=== PATIENT | male | born 1980 | race Two or more races ===

== ENCOUNTER 2025-01-20 06:36 | Emergency (ER) | payer MEDICAID, SELFPAY ==
--- NOTE | 2025-01-20 06:44 | XR_ITS ---
Examination: AP chest single view TECHNIQUE: AP portable semiupright chest single view Exam date time: January 20, 2025 0658 hours INDICATIONS: Chest pain today. FINDINGS: Mild prominence left ventricle No lobar pneumonia or pulmonary edema Mild osteopenia IMPRESSION: No pneumonia or pulmonary edema
--- NOTE | 2025-01-20 06:44 | EKG_ITS ---
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
[2025-01-20 06:50] VITALS: BP 103/79; RESP 18; TEMP 36.8; O2SAT 95
[2025-01-20 06:51] VITALS: PULSE 66; RESP 18; O2SAT 98
[2025-01-20 07:09] LABS: Basophils % (Auto) 0 % (0-2.5); Eosinophils # (Auto) 0.1 Thou/mm3 (0.0-0.5); Eosinophils % (Auto) 2 % (0-10); Hemoglobin 15.1 g/dL (13.5-16.0); Immature Granulocytes % (Auto) 0 % (0-0); Immature Granulocytes Auto 0.01 Thou/mm3 (0.00-0.00); Lymphocytes # (Auto) 2.3 Thou/mm3 (1.0-4.8); Lymphocytes % (Auto) 38 % (10-50); Mean Corpuscular HGB Conc 35.1 g/dl (31.0-37.0); Mean Corpuscular Hemoglobin 30.3 pg (25.0-35.0); Mean Corpuscular Volume 86 fL (80-100); Monocytes # (Auto) 0.5 Thou/mm3 (0.0-0.8); Monocytes % (Auto) 8 % (0-12); Neutrophils # (Auto) 3.1 Thou/mm3 (1.8-7.7); Neutrophils % (Auto) 52 % (37-80); Nucleated Red Blood Cell % 0 /100 WBC (0); Platelet Count 169 Thou/mm3 (140-440); Red Blood Count 4.98 Miln/mm3 (4.50-5.90); White Blood Count 5.9 Thou/mm3 (3.8-10.6)
[2025-01-20 07:20] LABS: INR 1.1 (0.9-1.3); Prothrombin Time 11.5 Seconds (9.0-12.2)
[2025-01-20 07:41] LABS: Alanine Aminotransferase 23 U/L (10-49); Albumin/Globulin Ratio 1.4 (1.2-2.2); Alkaline Phosphatase 82 U/L (46-116); Anion Gap 7 (7-16); Aspartate Amino Transferase 16 U/L (0-34); BUN/Creatinine Ratio 13 Ratio (12-20); Bilirubin,Total 0.5 mg/dL (0.3-1.2); Blood Urea Nitrogen 10 mg/dL (9-23); Calcium 8.8 mg/dL (8.3-10.6); Calcium (Corrected) 8.8 mg/dL (8.5-10.1); Carbon Dioxide 26.3 mMol/L (20.0-31.0); Chloride 108 mMol/L (98-107); Creatinine (Component) 0.8 mg/dL (0.6-1.3); Globulin 2.9 gm/dL (2.3-3.5); Glucose 113 mg/dL (74-106); Lipase 28 U/L (12-53); Magnesium 2.2 mg/dL (1.6-2.6); Osmolality,Calculated 281 (275-295); Potassium 3.7 mMol/L (3.4-5.1); Sodium 141 mMol/L (136-145); Total Protein 6.9 gm/dL (5.7-8.2); Troponin I < 0.002 ng/mL (0.0-0.045); eGFR > 60 See Note
[2025-01-20 07:47] LABS: B-Type Natriuretic Peptide < 20 pg/mL (0-100)
[2025-01-20 07:52] LABS: Alcohol, Blood Medical < 3.0 mg/dL (0-10.0)
[2025-01-20 08:28] VITALS: PULSE 51
--- NOTE | 2025-01-20 08:55 | EDNOTE_ITS ---
ED Chest Pain RME/HPI General Chief Complaint: Chest Pain Stated Complaint: CHEST PAIN Time Seen by Provider: 01/20/25 06:44 Arrival date/time: 01/20/25 06:36 RME / HPI RME / HPI narrative: DR. EISENBERG MAIN ED EVALUATION: 44 year old male with past medical history significant for migraines, primary hypertension, and obstructive sleep apnea presents to the Emergency Department [facility] with complaint of chest pain since yesterday. Patient states that the pain started on the right side then moved to the left side. Associated symptoms include nausea and shortness of breath. Related Data Home Medications ?Medication ?Instructions ?Recorded ?Confirmed metoprolol succinate 50 mg 50 mg PO QDAY 06/14/24/11/17 tablet,extended release 24 hr Previous Rx's ?Medication ?Instructions ?Recorded levetiracetam 500 mg tablet 1,500 mg (3 x 500 mg) PO B ID #[id number] 06/16/24 tabs Allergies Allergy/AdvReac Type Severity Reaction Status Date / Time No Known Allergies Allergy Verified 07/19/20 10:45 Review of Systems Review of Systems Systems Reviewed: All systems reviewed, normal except as documented Past Medical History Past Medical History NEUROLOGIC: Positive Neurological Disorders and Migraine CARDIAC: Positive Cardiac Disorders and Hypertension; Negative Congestive Heart Failure RESPIRATORY: Positive Sleep Apnea; Negative Chronic Obstructive Pulmonary Disease (COPD) HEMATOLOGIC: Negative Blood Disorders PSYCHO/SOCIAL: Positive Anxiety OTHER HISTORY: Negative Cancer Social History SMOKING STATUS: Never smoker SUBSTANCE USE: does not use ALCOHOL: Never ED Exam Narrative Physical exam: GENERAL APPEARANCE: alert and oriented x 4, well-developed, well-nourished, no acute distress VITALS: All vitals were reviewed and the pulse ox is 95% on room air, which is normal according to my interpretation. HEENT: Normocephalic, atraumatic; pupils equal, round, reactive to light; EOMI; mucous membranes pink, moist; oropharynx clear NECK: Supple LUNGS: CTABL; no wheezes, no rales, no rhonchi HEART: Regular rate, regular rhythm; normal S1, S2; no murmurs ABDOMEN: non distended; normal BS; soft, no tenderness, no guarding, no rebound; no masses, no organomegaly, no hernia BACK: no CVA tenderness EXTREMITIES: atraumatic; no edema NEUROLOGIC: awake; alert and oriented x4; cranial nerves II-XII grossly intact; no focal sensory or motor deficits PSYCHIATRIC: appropriate mood and affect SKIN: warm, dry, normal color; no rashes Course Quality Measures none Orders Category Date Time 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 Care 01/20/25 06:44 Active EKG (ED ONLY) *Do not use* NOW Care 01/20/25 06:44 Completed IV [Insert IV] NOW Care 01/20/25 07:00 Active EKG (ED Only) Stat Exams 01/20/25 06:44 Draft XR chest 1V portable Stat Exams 01/20/25 06:44 Completed Alcohol, Blood Medical Stat Lab 01/20/25 07:00 Completed B-Type Natriuretic Peptide Stat Lab 01/20/25 07:00 Completed CBC Stat Lab 01/20/25 07:00 Completed Comprehensive Metabolic Panel Stat Lab 01/20/25 07:00 Completed D-Dimer Stat Lab 01/20/25 09:53 Completed Drug Screen,Urine Stat Lab 01/20/25 08:20 Completed Lipase Stat Lab 01/20/25 07:00 Completed Magnesium Stat Lab 01/20/25 07:00 Completed Partial Thromboplastin Time Stat Lab 01/20/25 07:00 Completed Prothrombin Time with INR Stat Lab 01/20/25 07:00 Completed Troponin I Stat Lab 01/20/25 07:00 Completed Troponin I Stat Lab 01/20/25 09:53 Completed UA, C/S IF [Urinalysis, C/S if Indicated] Stat Lab 01/20/25 08:20 Completed Vital Signs Vital signs: Vital Signs Temperature 98.2 F 01/20/25 06:50 Respiratory Rate 18 01/20/25 06:50 Blood Pressure 103/79 01/20/25 06:50 Pulse Oximetry (%) 95 01/20/25 06:50 Oxygen Delivery Method Room Air 01/20/25 06:50 Chest Pain MDM Narrative MDM Narrative:: IAna María am scribing for and in the presence of Dr. Eisenberg. Patient data External records reviewed:: EMS form Clinical information provided by:: patient and EMS Social determinants that could affect healthcare access:: none Patient has the following chronic illnesses:: migraines, primary hypertension, and obstructive sleep apnea How is presenting disease/condition affected by chronic disease/condition?: exacerbated by Evaluation data The following diagnostics were reviewed and interpreted by me:: lab results, radiology exam(s) and EKG tracing(s) (EKG#1: EKG at 0740 hours. Interpreted by me: sinus bradycardia, rate 51, QTc 435, no acute ischemic changes) Lab and/or radiology exams considered but not ordered:: none Interpretation Summary: Procedure(s): XR chest 1V portable Accession Number(s): [id number] cc: Mark Brand PA-C; Zev Lerma MD; Federica Eisenberg MD~ Examination: AP chest single view TECHNIQUE: AP portable semiupright chest single view Exam date time: January 20, 2025 0658 hours INDICATIONS: Chest pain today. FINDINGS: Mild prominence left ventricle No lobar pneumonia or pulmonary edema Mild osteopenia IMPRESSION: No pneumonia or pulmonary edema Dictated By: Zev Lerma MD Medications / Prescriptions Medications or Prescriptions considered but not ordered:: none Medication administrations:: see above if any Consultations Consultation(s) initiated? (list below): No Diagnosis Chest Pain Differential Diagnosis: atypical chest pain, costochondritis, chest pain and biliary colic Most likely diagnosis given after review of the tests above:: Atypical chest pain Admission Indicated Admission indicated?: not indicated Admission Request Was there a request for admission?: No Disposition Plan Disposition Plan: Discharge Discharge Attestation Discharge Attestation: The patient and all family members were given an opportunity to ask questions and understood the discharge instructions. Discharge instructions specifically effects, indications for sooner follow up or return to the emergency department, and the expected course of current diagnosis. Patient condition: Stable Discharge Plan Plan Patient Disposition: HOME (Self Care) Prescriptions/Referrals Prescriptions/Med Rec: No Action metoprolol succinate 50 mg Tablet Extended Release 24 Hr 50 mg PO QDAY levetiracetam 500 mg tablet 1,500 mg PO BID Qty: 180 0RF Referrals: Mark Brand PA-C [Primary Care Provider] - In 1 week Problem List Clinical Impression: Atypical chest pain Patient/Caregiver Discharge Instructions Education Materials: ED Chest Pain, Uncertain Cause Print Language: Greenlandic Stand Alone Forms: Anne Award Info., Patient Portal Info Letter
[2025-01-20 08:58] LABS: Collection Type, Urine Clean Catch
[2025-01-20 09:07] VITALS: BP 92/59; PULSE 45; RESP 16; TEMP 36.7; O2SAT 95
[2025-01-20 09:26] LABS: Bilirubin,Urine Negative (Negative); Blood,Urine Negative (Negative); Clarity,Urine Clear (Clear/Hazy); Color,Urine Yellow (Lt Yel-Yel); Culture Indicated,Urine Not Indicated; Glucose, Urine Negative (Negative); Ketones,Urine Negative (Negative); Leukocyte Esterase,Urine Negative (Negative); Nitrite,Urine Negative (Negative); Protein,Urine Negative (Neg - Trace); RBC,Urine 3 /hpf (0-3); Specific Gravity,Urine 1.027 (1.001-1.035); Squamous Epithelial Cell,Urine < 1 /hpf (0-5); Urobilinogen,Urine Negative mg/dL (0.0-1.0); WBC,Urine 1 /hpf (0-5)
[2025-01-20 09:31] LABS: Amphetamine/Methamp Scrn,U Negative (Negative); Barbiturate Screen,Urine Negative (Negative); Benzodiazepines Screen,Urine Negative (Negative); Benzoylecgonine Screen, Ur Negative (Negative); Fentanyl Screen,Urine Negative (Negative); Opiate Screen,Urine Negative (Negative); THC Screen,Urine Negative (Negative)
[2025-01-20 10:45] LABS: Troponin I < 0.002 ng/mL (0.0-0.045)
[2025-01-20 11:50] LABS: D-Dimer < 250 ng/mL (<600)
[2025-01-20 13:40] VITALS: PULSE 51; RESP 20; TEMP 36.9; O2SAT 96
== END 2025-01-20 13:40 | disposition home or self-care (01) ==
PROVIDERS: Emergency Provider Emergency Medicine; PCP Physician Assistant
DX: R07.89 Other chest pain (principal); G47.33 Obstructive sleep apnea (adult) (pediatric); I10 Essential (primary) hypertension
CPT/HCPCS: 36415; 71045; 80053; 80307; 80320; 81001; 83690; 83735; 83880; 84484; 85025; 85379; 85610; 85730; 93005; 99283; G0480

== ENCOUNTER 2025-02-24 02:02 | Emergency (ER) | payer MEDICAID, SELFPAY ==
[2025-02-24 02:03] VITALS: BMI 30.4
[2025-02-24 02:35] VITALS: BP 138/98; PULSE 78; RESP 16; TEMP 36.6; O2SAT 99
[2025-02-24] MEDS: METOCLOPRAMIDE 5 MG TABLET PO (03:17)
[2025-02-24] MEDS: MECLIZINE HCL 25 MG TABLET PO (03:17)
[2025-02-24 03:55] VITALS: BP 130/82; PULSE 68
--- NOTE | 2025-02-24 05:50 | EDNOTE_ITS ---
<Statement entered by Federica Eisenberg MD - 02/25/25 04:32> As co-signing physician, I was present and available for consult prn. I concur with the plan and care as documented by the midlevel provider. ED Dizzyness RME/HPI General Chief Complaint: Dizziness Stated Complaint: HIGH BP, DIZZINESS, NAUSEA Time Seen by Provider: 02/24/25 02:52 Arrival date/time: 02/24/25 02:02 44M with history of complex migraines and HTN presents to ED with 1 day of high BP, dizziness, and N/V. Patient denies weakness, slurred speech, fall/trauma, and vision changes. Patient has had a mild cough for 1 week. Limitations: no limitations Related Data Home Medications ?Medication ?Instructions ?Recorded ?Confirmed metoprolol succinate 50 mg 50 mg PO QDAY 06/14/2405/26 tablet,extended release 24 hr Previous Rx's ?Medication ?Instructions ?Recorded levetiracetam 500 mg tablet 1,500 mg (3 x 500 mg) PO B ID #[id number] 06/16/24 tabs Allergies Allergy/AdvReac Type Severity Reaction Status Date / Time No Known Allergies Allergy Verified 02/24/25 02:03 Review of Systems Review of Systems Systems Reviewed: All systems reviewed, normal except as documented Constitutional Constitutional: Reports system reviewed and no additional complaints, except as documented, Denies fever(s) and Denies headache(s) ENT Ears, Nose, Mouth, and Throat: Reports as per HPI, Denies disequilibrium, Denies headache(s) and Reports vertigo Cardiovascular Cardiovascular: Reports system reviewed and no additional complaints, except as documented, Denies chest pain and Denies dyspnea Respiratory Respiratory: Reports system reviewed and no additional complaints, except as documented, Denies cough and Denies dyspnea Gastrointestinal Gastrointestinal: Reports system reviewed and no additional complaints, except as documented, Reports as per HPI, Denies abdominal pain, Reports nausea and Reports vomiting Neurologic Neurologic: Reports system reviewed and no additional complaints, except as documented, Denies confusion, Denies disequilibrium, Denies headache(s) and Reports vertigo Psychiatric Psychiatric: Denies confusion Past Medical History Past Medical History NEUROLOGIC: Positive Neurological Disorders and Migraine CARDIAC: Positive Cardiac Disorders and Hypertension; Negative Congestive Heart Failure RESPIRATORY: Positive Sleep Apnea; Negative Chronic Obstructive Pulmonary Disease (COPD) GASTROINTESTINAL: Negative Gastrointestinal Disorders GENITOURINARY: Negative Genitourinary Disorders or Renal Disease MUSCULOSKELETAL: Negative Musculoskeletal Disorders ENDOCRINE: Negative Endocrine Disorders, Diabetes Mellitus Type 1 or Diabetes Mellitus Type 2 HEMATOLOGIC: Negative Blood Disorders PSYCHO/SOCIAL: Positive Anxiety OTHER HISTORY: Negative Cancer Social History SMOKING STATUS: Never smoker SUBSTANCE USE: does not use ED Exam General Limitations: Present no limitations General appearance: Present alert and in no apparent distress Head Head exam: Present atraumatic Eye Eye exam: Present normal appearance, PERRL and EOMI ENT ENT exam: Present normal exam, normal oropharynx and mucous membranes moist Neck Neck exam: Present normal inspection, full ROM and trachea midline Chest Chest inspection: Present normal inspection and symmetric chest wall rise Respiratory Respiratory exam: Present normal lung sounds bilaterally Cardiovascular Cardiovascular exam: Present regular rate, normal rhythm and normal heart sounds Abdominal Exam Abdominal exam: Present soft and normal bowel sounds Extremities Exam Extremities exam: Present normal inspection and full ROM Back Exam Back exam: Present normal inspection and full ROM Neurological Exam Neurological exam: Present alert, oriented X3 and CN II-XII intact Psychiatric Psychiatric exam: Present normal affect and normal mood Skin Skin exam: Present warm, dry, intact and normal color Course Quality Measures none Orders Category Date Time Status Bedside COVID-19 Antigen Test NOW Care 02/24/25 02:53 Completed Bedside Influenza A&B Antigen Test NOW Care 02/24/25 02:53 Completed EKG (ED ONLY) *Do not use* NOW Care 02/24/25 02:20 Completed EKG (ED Only) Stat Exams 02/24/25 02:20 Ordered Meclizine HCl [Antivert] Med 02/24/25 02:53 Discontinued 25 mg PO X1 ONE Metoclopramide [Reglan] Med 02/24/25 02:54 Discontinued 5 mg PO X1 ONE Vital Signs Vital signs: Vital Signs Temperature 98 F 02/24/25 02:35 Pulse Rate 78 02/24/25 02:35 Respiratory Rate 16 02/24/25 02:35 Blood Pressure 138/98 H 02/24/25 02:35 Pulse Oximetry (%) 99 02/24/25 02:35 O2 at 99% on RA and WNLs Dizziness MDM Narrative MDM Narrative:: 44M with history of complex migraines and HTN presents to ED with 1 day of high BP, dizziness, and N/V. Patient denies weakness, slurred speech, fall/trauma, and vision changes. Patient has had a mild cough for 1 week. Physical exam reveals normal pupil response and EOM. CN II=XII grossly intact. Gait normal. Clear lungs. No sinus tenderness. Patient is afebrile, calm, and alert Swabs neg. EKG normal. Patient declines additional diagnostics as meds improved symptoms. Patient data External records reviewed:: [facility] previous records Clinical information provided by:: patient Social determinants that could affect healthcare access:: none Patient has the following chronic illnesses:: complex migraines and HTN How is presenting disease/condition affected by chronic disease/condition?: exacerbated by Evaluation data The following diagnostics were reviewed and interpreted by me:: lab results and EKG tracing(s) Lab and/or radiology exams considered but not ordered:: ordered Interpretation Summary: above Medications / Prescriptions Medications or Prescriptions considered but not ordered:: ordered Medication administrations:: Medication Administration History Discontinued Medications Meclizine HCl (Meclizine Hcl 25 Mg Tablet) 25 mg PO X1 ONE Stop: 02/24/25 02:54 Last Admin: 02/24/25 03:17 Dose: 25 mg Documented By: ARNOLD Metoclopramide HCl (Metoclopramide 5 Mg Tablet) 5 mg PO X1 ONE Stop: 02/24/25 02:55 Last Admin: 02/24/25 03:17 Dose: 5 mg Documented By: ARNOLD above Consultations Consultation(s) initiated? (list below): No Diagnosis Dizziness Differential Diagnosis: adverse reaction to drug, benign paroxysmal positional vertigo, orthostatic hypotension, vertebral basilar insufficiency, cerebrovascular accident, acute vestibular neuronitis, transient cerebral ischemia and other (dizziness) Most likely diagnosis given after review of the tests above:: dizziness Admission Indicated Admission indicated?: not indicated Admission Request Was there a request for admission?: No Disposition Plan Disposition Plan: Discharge Discharge Attestation Discharge Attestation: The patient and all family members were given an opportunity to ask questions and understood the discharge instructions. Discharge instructions specifically effects, indications for sooner follow up or return to the emergency department, and the expected course of current diagnosis. Patient condition: Stable Discharge Plan Plan Patient Disposition: HOME (Self Care) Discharge Disposition comment: Stable Prescriptions/Referrals Prescriptions/Med Rec: No Action metoprolol succinate 50 mg Tablet Extended Release 24 Hr 50 mg PO QDAY levetiracetam 500 mg tablet 1,500 mg PO BID Qty: 180 0RF Problem List Clinical Impression: Dizziness Patient/Caregiver Discharge Instructions Education Materials: ED Dizziness, Uncertain Cause Additional Instructions: Please follow-up with PCP within 24-48 hours and return immediately if symptoms worsen. Print Language: Filipino Stand Alone Forms: Patient Portal Info Letter PA/FURNITURE MECHANIC Supervising Physician PA/FURNITURE MECHANIC Supervising Physician: Dr. Eisenberg
== END 2025-02-24 03:55 | disposition home or self-care (01) ==
LOC: SERX 03:59
PROVIDERS: Emergency Provider Emergency Medicine; PCP Physician Assistant
DX: R42 Dizziness and giddiness (principal); R94.31 Abnormal electrocardiogram [ECG] [EKG]; I10 Essential (primary) hypertension
CPT/HCPCS: 87400; 87811; 93005; 99283; A9270

== ENCOUNTER 2025-06-29 01:40 | Emergency (ER) | payer MEDICAID, SELFPAY ==
[2025-06-29 01:42] VITALS: PULSE 60; RESP 18; O2SAT 99; BMI 29.2
--- NOTE | 2025-06-29 01:47 | PD.EDSEIZ ---
ED Seizures RME/HPI General Chief Complaint: Seizure Stated Complaint: SEIZURES Time Seen by Provider: 06/29/25 01:57 Arrival date/time: 06/29/25 01:40 RME / HPI RME / HPI Narrative: See [facility] for Dr. Crum's HPI documentation. Related Data Home Medications ?Medication ?Instructions ?Recorded ?Confirmed metoprolol succinate 50 mg 50 mg PO QDAY 06/14/24 06/14/24 tablet,extended release 24 hr Previous Rx's ?Medication ?Instructions ?Recorded levetiracetam 500 mg tablet 1,500 mg (3 x 500 mg) PO BID #180 06/16/24 tabs lacosamide 50 mg tablet (Vimpat) 50 mg PO BID #60 tabs 06/29/25 Allergies Allergy/AdvReac Type Severity Reaction Status Date / Time No Known Allergies Allergy Verified 02/24/25 02:03 Review of Systems Review of Systems Systems Reviewed: All systems reviewed, normal except as documented Past Medical History Past Medical History NEUROLOGIC: Positive Neurological Disorders and Migraine CARDIAC: Positive Cardiac Disorders and Hypertension; Negative Congestive Heart Failure RESPIRATORY: Positive Sleep Apnea; Negative Chronic Obstructive Pulmonary Disease (COPD) GASTROINTESTINAL: Negative Gastrointestinal Disorders GENITOURINARY: Negative Genitourinary Disorders or Renal Disease MUSCULOSKELETAL: Negative Musculoskeletal Disorders ENDOCRINE: Negative Endocrine Disorders, Diabetes Mellitus Type 1 or Diabetes Mellitus Type 2 HEMATOLOGIC: Negative Blood Disorders PSYCHO/SOCIAL: Positive Anxiety OTHER HISTORY: Negative Cancer Social History SMOKING STATUS: Never smoker SUBSTANCE USE: does not use ED Exam Narrative Physical exam: See [facility] for Dr. Crum's physical exam documentation. Course Quality Measures none Orders Category Date Time Status Bedside COVID-19 Antigen Test NOW Care 06/29/25 02:00 Completed Bedside Influenza A&B Antigen Test NOW Care 06/29/25 02:00 Completed EKG (ED ONLY) *Do not use* NOW Care 06/29/25 01:54 Completed Saline [Insert IV] NOW Care 06/29/25 02:00 Completed EKG (ED Only) Stat Exams 06/29/25 01:54 Ordered Alcohol, Blood Medical Stat Lab 06/29/25 02:20 Completed Bilirubin,Direct Stat Lab 06/29/25 02:20 Completed CBC Stat Lab 06/29/25 02:20 Completed CMP [Comprehensive Metabolic Panel] Stat Lab 06/29/25 02:20 Completed Drug Screen,Urine Stat Lab 06/29/25 04:00 Completed Magnesium Stat Lab 06/29/25 02:20 Completed TSH [Thyroid Stimulating Hormone] Stat Lab 06/29/25 02:20 Completed Troponin I Stat Lab 06/29/25 02:20 Completed UA, C/S IF [Urinalysis, C/S if Indicated] Stat Lab 06/29/25 04:00 Completed KCL 10% Liq UDC 15 ML Med 06/29/25 04:06 Discontinued 40 meq PO X1 ONE Ketorolac Inj [Toradol Inj] Med 06/29/25 02:00 Discontinued 30 mg IVP X1 ONE Lacosamide Ivp [Vimpat IVP] Med 06/29/25 05:00 Discontinued 100 mg IVP X1 ONE Ondansetron Inj [Zofran Inj] Med 06/29/25 02:00 Discontinued 4 mg IVP X1 ONE Sodium Chloride 0.9% 1000 ml [Ns] 1,000 ml Med 06/29/25 02:00 Discontinued IV 999 mls/hr levETIRAcetam INJ [Keppra Inj] Med 06/29/25 02:00 Discontinued 1,000 mg IVP X1 ONE Vital Signs Vital signs: Vital Signs Temperature 98.9 F 06/29/25 01:52 Pulse Rate 55 L 06/29/25 01:52 Respiratory Rate 18 06/29/25 01:52 Blood Pressure 149/105 H 06/29/25 01:52 Pulse Oximetry (%) 98 06/29/25 01:52 Oxygen Delivery Method Room Air 06/29/25 01:52 Seizure MDM Narrative MDM Narrative:: This section includes all my notes and documentations, including HPI, PE, and ED course. Brayan Crum MD HPI: 45yo male with a history of seizure disorder BIBA from home with seizure just [employer]. Patient had a witnessed 30-second seizure by family. Patient is compliant with his Keppra 500mg TID. Reports headache and nausea. No other complaints reported. ROS: All negative except as documented in HPI. Physical Exam: General: Alert and oriented. No acute distress when remaining still. Eyes: Conjunctivae and lids clear. PERRL. EOMI. ENT: No nasal congestion. Neck: Supple. Heart: RRR. Lungs: No respiratory distress. Good air movement. No rhonchi, wheezing, rales. Abdomen: Soft and nontender. Normal bowel sounds. No distension. No rebound or guarding. Back: No CVA tenderness. Skin: Warm and dry. Neuro: Alert and oriented X 3. CN 2-12 grossly normal. No peripheral motor deficits. I reviewed EMS notes. I reviewed all diagnostic test results. My interpretation of the EKG is sinus rhythm with nonspecific ST-T changes. Blood tests are unremarkable except K 3.3. At this point, diagnoses include: Recurrent seizure Headache and nausea Treatment here included: Keppra Toradol Zofran IV fluid Oral KCl Lacosamide Signifiant improvement noted. Recommended outpatient management. Based on my best medical judgment, made decision no further evaluation or treatment indicated at this time. Patient understands and agrees to the discharge instructions customized and printed, see below. Discharge Instructions from Dr. Crum printed for you: 1. You were treated today for recurrent seizure. 2. Continue taking three 500 mg Keppra (levetiracetam) pills twice daily. 3. To prevent more seizures, take Vimpat 50 mg twice daily until cleared by your neurologist. 4. See your neurologist later today on 06/29/2025 for recheck and further care. At minimum, call the office and let them know what happened and ask for further instructions. 5. Seek immediate medical care with another seizure or with any concerns. Brayan Crum MD Patient data External records reviewed:: [facility] previous records (Per chart review, patient was seen here on 02/24/25 for dizziness.) and EMS form Clinical information provided by:: patient and EMS Social determinants that could affect healthcare access:: none Patient has the following chronic illnesses:: HTN How is presenting disease/condition affected by chronic disease/condition?: uneffected by Evaluation data The following diagnostics were reviewed and interpreted by me:: lab results and EKG tracing(s) (My interpretation of the EKG is: Sinus rhythm (57 bpm) with nonspecific ST-T changes. Brayan Crum MD) Lab and/or radiology exams considered but not ordered:: none Interpretation Summary: I reviewed all diagnostic test results. My interpretation of the EKG is sinus rhythm with nonspecific ST-T changes. Blood tests are unremarkable except K 3.3. Medications / Prescriptions Medications or Prescriptions considered but not ordered:: none Medication administrations:: Medication Administration History Discontinued Medications Sodium Chloride (Ns) 1,000 mls @ 999 mls/hr IV .Q1H1M ONE Stop: 06/29/25 03:00 Last Infusion: 06/29/25 03:58 Dose: Infused Documented By: Admin: 06/29/25 02:31 Dose: 999 mls/hr Documented By: DENZEL Ketorolac Tromethamine (Ketorolac Inj 30 Mg/Ml Vial) 30 mg IVP X1 ONE Stop: 06/29/25 02:01 Last Admin: 06/29/25 02:31 Dose: 30 mg Documented By: DENZEL Lacosamide (Lacosamide Inj 200 Mg/20 Ml Vial) 100 mg IVP X1 ONE Stop: 06/29/25 05:01 Last Admin: 06/29/25 05:20 Dose: 100 mg Documented By: DOUG Levetiracetam (Levetiracetam Inj 100 Mg/Ml Vial 5ml) 1,000 mg IVP X1 ONE Stop: 06/29/25 02:01 Last Admin: 06/29/25 02:30 Dose: 1,000 mg Documented By: DENZEL Ondansetron HCl (Ondansetron Inj 2 Mg/Ml Inj 2 Ml) 4 mg IVP X1 ONE; Protocol Stop: 06/29/25 02:01 Last Admin: 06/29/25 02:31 Dose: 4 mg Documented By: DENZEL Potassium Chloride (Potassium Chloride 10% 20 Meq/15 Ml Udc) 40 meq PO X1 ONE Stop: 06/29/25 04:07 Last Admin: 06/29/25 05:38 Dose: 40 meq Documented By: DOUG Keppra, Toradol, Zofran, IV fluid, Oral KCl, Lacosamide Consultations Consultation(s) initiated? (list below): No Diagnosis Seizure Differential Diagnosis: intractable seizure disorder, febrile convulsion, focal seizure, generalized seizure, new onset seizure, epileptic seizure and status epilepticus Most likely diagnosis given after review of the tests above:: Recurrent seizures Admission Indicated Admission indicated?: not indicated Explain why admission is indicated or not indicated:: With significant improvement and no condition needing emergent intervention, there was no indication for admission. Admission Request Was there a request for admission?: No Disposition Plan Disposition Plan: Discharge Discharge Attestation Discharge Attestation: The patient and all family members were given an opportunity to ask questions and understood the discharge instructions. Discharge instructions specifically effects, indications for sooner follow up or return to the emergency department, and the expected course of current diagnosis. Patient condition: Stable Discharge Plan Plan Patient Disposition: HOME (Self Care) Prescriptions/Referrals Prescriptions/Med Rec: New lacosamide [Vimpat] 50 mg tablet 50 mg PO BID Qty: 60 2RF No Action metoprolol succinate 50 mg Tablet Extended Release 24 Hr 50 mg PO QDAY levetiracetam 500 mg tablet 1,500 mg PO BID Qty: 180 0RF Referrals: Mark Brand PA-C [Primary Care Provider] - In 1 week Problem List Clinical Impression: Recurrent seizures Patient/Caregiver Discharge Instructions Discharge Activity: activity as tolerated Education Materials: ED Seizure, Recurrent (Adult) Additional Instructions: Discharge Instructions from Dr. Crum printed for you: 1. You were treated today for recurrent seizure. 2. Continue taking three 500 mg Keppra (levetiracetam) pills twice daily. 3. To prevent more seizures, take Vimpat 50 mg twice daily until cleared by your neurologist. 4. See your neurologist later today on 06/29/2025 for recheck and further care. At minimum, call the office and let them know what happened and ask for further instructions. 5. Seek immediate medical care with another seizure or with any concerns. Instrucciones de dwaine del Dr. Crum impresas para usted: 1. Hoy recibi? tratamiento por convulsiones recurrentes. 2. Contin?e tomando marycarmen comprimidos de Keppra (levetiracetam) de 500 mg dos veces al d?a. 3. Para prevenir m?s convulsiones, tome Vimpat 50 mg dos veces al d?a hasta que tadeo neur?logo lo autorice. 4. Consulte con tadeo neur?logo hoy mismo, 03/02/2025, para rachna nueva revisi?n y atenci?n adicional. [place] m?mitra, llame al consultorio e inf?rmeles lo sucedido y solicite m?s instrucciones. 5. Busque atenci?n m?dica inmediata si tiene otra convulsi?n o cualquier inquietud. Print Language: [place] Stand Alone Forms: Anne Award Info., Patient Portal Info Letter
[2025-06-29 01:50] VITALS: BMI 29.2
[2025-06-29 01:52] VITALS: BP 149/105; PULSE 55; RESP 18; TEMP 37.2; O2SAT 98
[2025-06-29] MEDS: levETIRAcetam INJ 100 MG/ML VIAL 5ML 1000 MG IVP (02:30)
[2025-06-29] MEDS: KETOROLAC INJ 30 MG/ML VIAL IVP (02:31)
[2025-06-29] MEDS: ONDANSETRON INJ 2 MG/ML INJ 2 ML 4 MG IVP (02:31)
[2025-06-29] MEDS: SODIUM CHLORIDE 0.9% 1000 ML 1,000 ML 999 ML IV (02:31)
[2025-06-29 02:45] LABS: Basophils # (Auto) 0.0 Thou/mm3 (0.0-0.2); Basophils % (Auto) 0 % (0-2.5); Eosinophils # (Auto) 0.1 Thou/mm3 (0.0-0.5); Eosinophils % (Auto) 2 % (0-10); Hematocrit 42.9 % (41.0-53.0); Hemoglobin 15.0 g/dL (13.5-16.0); Immature Granulocytes Auto 0.02 Thou/mm3 (0.00-0.00); Lymphocytes # (Auto) 2.4 Thou/mm3 (1.0-4.8); Lymphocytes % (Auto) 41 % (10-50); Mean Corpuscular HGB Conc 35.0 g/dl (31.0-37.0); Mean Corpuscular Hemoglobin 30.8 pg (25.0-35.0); Mean Corpuscular Volume 88 fL (80-100); Monocytes # (Auto) 0.5 Thou/mm3 (0.0-0.8); Monocytes % (Auto) 9 % (0-12); Neutrophils # (Auto) 2.7 Thou/mm3 (1.8-7.7); Neutrophils % (Auto) 47 % (37-80); Nucleated Red Blood Cell # 0.00 Thou/mm3 (0.00-0.00); Nucleated Red Blood Cell % 0 /100 WBC (0); Platelet Count 156 Thou/mm3 (140-440); RDW Standard Deviation 38.0 fL (35.1-43.9); Red Blood Count 4.87 Miln/mm3 (4.50-5.90); White Blood Count 5.8 Thou/mm3 (3.8-10.6)
[2025-06-29 03:18] LABS: Alanine Aminotransferase 25 U/L (10-49); Albumin, Serum 4.0 gm/dL (3.5-5.0); Albumin/Globulin Ratio 1.6 (1.2-2.2); Alcohol, Blood Medical < 3.0 mg/dL (0-10.0); Alkaline Phosphatase 82 U/L (46-116); Anion Gap 11 (7-16); Aspartate Amino Transferase 16 U/L (0-34); BUN/Creatinine Ratio 13 Ratio (12-20); Bilirubin,Direct 0.1 mg/dL (0.0-0.3); Bilirubin,Total 0.5 mg/dL (0.3-1.2); Blood Urea Nitrogen 10 mg/dL (9-23); Calcium 9.3 mg/dL (8.3-10.6); Calcium (Corrected) 9.3 mg/dL (8.5-10.1); Carbon Dioxide 25.2 mMol/L (20.0-31.0); Chloride 106 mMol/L (98-107); Creatinine (Component) 0.8 mg/dL (0.6-1.3); Estimated Creatinine Clearance 134.5 mL/min (>60); Globulin 2.5 gm/dL (2.3-3.5); Glucose 115 mg/dL (74-106); Magnesium 1.9 mg/dL (1.6-2.6); Osmolality,Calculated 283 (275-295); Potassium 3.3 mMol/L (3.4-5.1); Sodium 142 mMol/L (136-145); Thyroid Stimulating Hormone 1.23 uIU/mL (0.55-4.78); Total Protein 6.5 gm/dL (5.7-8.2); Troponin I < 0.002 ng/mL (0.0-0.045); eGFR > 60 See Note
[2025-06-29 04:14] LABS: Collection Type, Urine Clean Catch
[2025-06-29 04:23] LABS: Bilirubin,Urine Negative (Negative); Blood,Urine Negative (Negative); Clarity,Urine Clear (Clear/Hazy); Color,Urine Lt-Yellow (Lt Yel-Yel); Culture Indicated,Urine Not Indicated; Glucose, Urine Negative (Negative); Ketones,Urine Negative (Negative); Leukocyte Esterase,Urine Negative (Negative); Nitrite,Urine Negative (Negative); PH,Urine 6.0 (5.0-7.0); Protein,Urine Negative (Neg - Trace); RBC,Urine 2 /hpf (0-3); Specific Gravity,Urine 1.021 (1.001-1.035); Squamous Epithelial Cell,Urine < 1 /hpf (0-5); Urobilinogen,Urine Negative mg/dL (0.0-1.0); WBC,Urine < 1 /hpf (0-5)
[2025-06-29 04:28] LABS: Amphetamine/Methamp Scrn,U Negative (Negative); Barbiturate Screen,Urine Negative (Negative); Benzodiazepines Screen,Urine Negative (Negative); Benzoylecgonine Screen, Ur Negative (Negative); Fentanyl Screen,Urine Negative (Negative); Opiate Screen,Urine Negative (Negative); THC Screen,Urine Negative (Negative)
[2025-06-29] MEDS: LACOSAMIDE INJ 200 MG/20 ML VIAL 100 MG IVP (05:20)
[2025-06-29] MEDS: POTASSIUM CHLORIDE 10% 20 MEQ/15 ML UDC 40 MEQ PO (05:38)
[2025-06-29 05:44] VITALS: BP 128/61; PULSE 78; RESP 17; TEMP 36.6; O2SAT 55
== END 2025-06-29 05:48 | disposition home or self-care (01) ==
PROVIDERS: Emergency Provider Emergency Medicine; PCP Physician Assistant
DX: G40.909 Epilepsy, unspecified, not intractable, without status epilepticus (principal); I10 Essential (primary) hypertension; Z79.899 Other long term (current) drug therapy
CPT/HCPCS: 36415; 80053; 80307; 80320; 81001; 82248; 83735; 84443; 84484; 85025; 87400; 87811; 93005; 96361; 96374; 96375; 99284; C9254; J1885; J1953; J2405; J7030; A9270; G0480

== ENCOUNTER 2025-08-13 10:36 | Emergency (ER) | payer MEDICAID, SELFPAY ==
[2025-08-13 11:13] VITALS: BP 146/99; PULSE 74; RESP 18; TEMP 36.9; O2SAT 99; BMI 29.8
--- NOTE | 2025-08-13 11:14 | EKG_ITS ---
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
--- NOTE | 2025-08-13 11:14 | XR_ITS ---
Examination: CT brain head without contrast. 2-D sagittal coronal reconstructions Date and time of exam: August 13, 2025, 11:52 a.m. INDICATIONS: Generalized head pain today CTDI: vol (mGy): 52.4 DLP: (mGycm): 1076 Technique: Multiple CT axial sections of the brain have been obtained, 5 mm slice thickness. Contrast has not been administered. 2-D sagittal, coronal reconstructions have been obtained Low dose protocols were performed. One or more of the following dose reduction techniques were used; automated exposure control, adjustment of the mA and/or KV according to patient size, use of iterative reconstruction technique. Findings: No significant ventricular enlargement. Intra-axial or extra-axial hemorrhage density is not seen. No mass effect or midline shift Basal cisterns are not remarkable. Fourth ventricle is midline. Cranial vault intact. Impression: Negative for acute hemorrhage, mass effect or midline shift Advise clinical correlation and follow-up accordingly
--- NOTE | 2025-08-13 11:15 | PD.EDRME ---
Rapid Medical Screening Exam RME Arrival date/time: 08/13/25 10:36 45-year-old male with a history of seizures presents to the emergency room with a chief complaint of a headache, dizziness, lightheadedness x 1 week I have greeted and performed a focused initial assessment of this patient. A comprehensive ED assessment and evaluation of the patient, analysis of all test results, and completion of the medical decision making process will be conducted by additional ED providers. Chief Complaint: Headache Time Seen by Provider: 08/13/25 11:05 Vital signs: Vital Signs Temperature 98.5 F 08/13/25 11:13 Pulse Rate 74 08/13/25 11:13 Respiratory Rate 18 08/13/25 11:13 Blood Pressure 146/99 H 08/13/25 11:13 Pulse Oximetry (%) 99 08/13/25 11:13 Oxygen Delivery Method Room Air 08/13/25 11:13 Vital signs reviewed by provider: Yes
--- NOTE | 2025-08-13 11:54 | XR_ITS ---
Examination: Abdomen AP single view Technique: AP portable supine abdomen, single view Exam date and time: August 13, 2025, 1159 hours INDICATIONS: Right upper abdominal pain today. FINDINGS: Moderate stool throughout the colon No obstruction No free air The osseous structures are intact IMPRESSION: No active disease
[2025-08-13 12:06] LABS: Basophils # (Auto) 0.0 Thou/mm3 (0.0-0.2); Basophils % (Auto) 0 % (0-2.5); Eosinophils # (Auto) 0.1 Thou/mm3 (0.0-0.5); Eosinophils % (Auto) 2 % (0-10); Hematocrit 44.6 % (41.0-53.0); Hemoglobin 15.4 g/dL (13.5-16.0); Immature Granulocytes Auto 0.01 Thou/mm3 (0.00-0.00); Lymphocytes # (Auto) 1.9 Thou/mm3 (1.0-4.8); Lymphocytes % (Auto) 33 % (10-50); Mean Corpuscular HGB Conc 34.5 g/dl (31.0-37.0); Mean Corpuscular Hemoglobin 30.6 pg (25.0-35.0); Mean Corpuscular Volume 89 fL (80-100); Monocytes # (Auto) 0.5 Thou/mm3 (0.0-0.8); Monocytes % (Auto) 8 % (0-12); Neutrophils # (Auto) 3.2 Thou/mm3 (1.8-7.7); Neutrophils % (Auto) 57 % (37-80); Nucleated Red Blood Cell # 0.00 Thou/mm3 (0.00-0.00); Nucleated Red Blood Cell % 0 /100 WBC (0); Platelet Count 123 Thou/mm3 (140-440); RDW Standard Deviation 38.5 fL (35.1-43.9); Red Blood Count 5.03 Miln/mm3 (4.50-5.90); White Blood Count 5.7 Thou/mm3 (3.8-10.6)
[2025-08-13 12:29] LABS: INR 1.0 (0.9-1.3); Partial Thromboplastin Time 21.1 Seconds (22.0-36.0); Prothrombin Time 10.7 Seconds (9.0-12.2)
[2025-08-13 12:30] LABS: Ammonia 17 uMol/L (11-32)
[2025-08-13 12:32] LABS: Alanine Aminotransferase 31 U/L (10-49); Albumin, Serum 4.2 gm/dL (3.5-5.0); Albumin/Globulin Ratio 1.5 (1.2-2.2); Alkaline Phosphatase 82 U/L (46-116); Anion Gap 9 (7-16); Aspartate Amino Transferase 23 U/L (0-34); BUN/Creatinine Ratio 9 Ratio (12-20); Bilirubin,Total 0.8 mg/dL (0.3-1.2); Blood Urea Nitrogen 7 mg/dL (9-23); Calcium 8.8 mg/dL (8.3-10.6); Calcium (Corrected) 8.8 mg/dL (8.5-10.1); Carbon Dioxide 24.1 mMol/L (20.0-31.0); Chloride 108 mMol/L (98-107); Creatinine (Component) 0.8 mg/dL (0.6-1.3); Estimated Creatinine Clearance 135.6 mL/min (>60); Globulin 2.8 gm/dL (2.3-3.5); Glucose 98 mg/dL (74-106); LDH (Lactate Dehydrogenase) 225 U/L (120-246); Lipase 28 U/L (12-53); Magnesium 1.9 mg/dL (1.6-2.6); Osmolality,Calculated 279 (275-295); Potassium 4.2 mMol/L (3.4-5.1); Sodium 141 mMol/L (136-145); Total Protein 7.0 gm/dL (5.7-8.2); Troponin I 0.026 ng/mL (0.0-0.045); eGFR > 60 See Note
[2025-08-13 12:35] LABS: B-Type Natriuretic Peptide < 20 pg/mL (0-100)
[2025-08-13] MEDS: ACETAMINOPHEN 325 MG TABLET 650 MG PO (13:11)
[2025-08-13] MEDS: METOCLOPRAMIDE 5 MG TABLET PO (13:11)
[2025-08-13 13:49] LABS: Collection Type, Urine Clean Catch
--- NOTE | 2025-08-13 14:04 | EDNOTE_ITS ---
ED Headache RME/HPI General Chief Complaint: Headache Stated Complaint: HEADACHE X3 DAYS Time Seen by Provider: 08/13/25 11:05 Arrival date/time: 08/13/25 10:36 Limitations: no limitations RME / HPI RME / HPI Narrative: 08/13/25 10:36 45-year-old male with a history of seizures presents to the emergency room with a chief complaint of a headache, dizziness, lightheadedness x 1 week I have greeted and performed a focused initial assessment of this patient. A comprehensive ED assessment and evaluation of the patient, analysis of all test results, and completion of the medical decision making process will be conducted by additional ED providers. Dr. Vyas evaluation Patient is a 45-year-old male that is in the ED with concerns for breakthrough headache. Patient has a history of chronic headaches. Has an extensive history of migraines, daily headache. States that his current headache is exactly like his prior headaches however has not been improving at home with home medications. Denies fevers chills nausea vomiting cough runny nose abdominal pain dysuria hematuria melena bloody stools drugs alcohol smoking recent travel sick contacts neck rigidity photophobia phonophobia. Per the patient's patient was hospitalized here approximately ago had extensive workup because he had seizures, and temporary paralysis that has since improved. Patient denies any weakness in his extremities, numbness or tingling. Related Data Home Medications ?Medication ?Instructions ?Recorded ?Confirmed metoprolol succinate 50 mg 50 mg PO QDAY 06/14/2405/26 tablet,extended release 24 hr Previous Rx's ?Medication ?Instructions ?Recorded levetiracetam 500 mg tablet 1,500 mg (3 x 500 mg) PO B ID #[id number] 06/16/24 tabs lacosamide 50 mg tablet (Vimpat) 50 mg PO BID #60 tabs 06/29/25 metoclopramide HCl 5 mg tablet 5 mg PO QDAY PRN nausea and 08/13/25 (Reglan) vomiting 5 days #5 tabs Allergies Allergy/AdvReac Type Severity Reaction Status Date / Time No Known Allergies Allergy Verified 08/13/25 10:39 ED Exam General Limitations: Present no limitations General appearance: Present alert and in no apparent distress Head Head exam: Present atraumatic and normocephalic Eye Eye exam: Present normal appearance and PERRL ENT ENT exam: Present normal exam and normal oropharynx Neck Neck exam: Present normal inspection and full ROM; Absent meningismus Chest Chest inspection: Present normal inspection and symmetric chest wall rise Respiratory Respiratory exam: Present normal lung sounds bilaterally; Absent respiratory distress Cardiovascular Cardiovascular exam: Present regular rate and normal rhythm Abdominal Exam Abdominal exam: Present tenderness; Absent distention Extremities Exam Extremities exam: Present normal inspection Neurological Exam Neurological exam: Present alert, oriented X3, CN II-XII intact, normal gait and other (No focal neurodeficits) Psychiatric Psychiatric exam: Present normal affect and normal mood Skin Skin exam: Present warm and dry Course Quality Measures none Orders Category Date Time Status EKG (ED ONLY) *Do not use* NOW Care 08/13/25 11:[address] head/brain wo con Stat Exams 08/13/25 11:14 Completed EKG (ED Only) Stat Exams 08/13/25 11:14 Draft KUB [XR abdomen 1V] Stat Exams 08/13/25 11:54 Completed Ammonia Stat Lab 08/13/25 11:43 Completed B-Type Natriuretic Peptide Stat Lab 08/13/25 11:43 Completed CBC Stat Lab 08/13/25 11:43 Completed Comprehensive Metabolic Panel Stat Lab 08/13/25 11:43 Completed Drug Screen,Urine Stat Lab 08/13/25 13:27 Completed LDH (Lactate Dehydrogenase) Stat Lab 08/13/25 11:43 Completed Lipase Stat Lab 08/13/25 11:43 Completed Magnesium Stat Lab 08/13/25 11:43 Completed Partial Thromboplastin Time Stat Lab 08/13/25 11:43 Completed Prothrombin Time with INR Stat Lab 08/13/25 11:43 Completed Troponin I Stat Lab 08/13/25 11:43 Completed Urinalysis, C/S if Indicated Stat Lab 08/13/25 13:27 Completed Acetaminophen Tab [Tylenol Tab] Med 08/13/25 12:00 Discontinued 650 mg PO X1 ONE Ketorolac Inj [Toradol Inj] Med 08/13/25 14:44 Discontinued 15 mg IM X1 ONE Metoclopramide [Reglan] Med 08/13/25 12:00 Discontinued 5 mg PO X1 ONE Vital Signs Vital signs: Vital Signs Temperature 98.5 F 08/13/25 11:13 Pulse Rate 74 08/13/25 11:13 Respiratory Rate 18 08/13/25 11:13 Blood Pressure 146/99 H 08/13/25 11:13 Pulse Oximetry (%) 99 08/13/25 11:13 Oxygen Delivery Method Room Air 08/13/25 11:13 Headache MDM Narrative [facility] Narrative:: Patient is a 45-year-old male with medical history notable for epilepsy, chronic headaches LINO that send Emergency Department concerns for headache. Vital signs and exam as listed. Ordered labs, CT brain. Patient also complaining of changes in bowel habits, possible constipation. Ordered x-ray of the abdomen. Concern for breakthrough headache, tension headache, migraine headache, intracranial hemorrhage among others. Patient without any focal neurodeficits, less likely stroke at this time. CT brain unremarkable. Per chart review patient was admitted to the hospital in May of last year. At that time patient was diagnosed with epilepsy, had an EEG that did not identify any abnormalities and as well as an MRI that did not identify any evidence of acute stroke or evidence of demyelination. Patient was closely followed by neurology. 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 Amitriptyline and sumatriptan were discontinued at the time because they lowered the seizure threshold. He was started on Keppra 1500 mg twice daily as well as gabapentin 3 times daily. Patient also takes Nurtec. Today's labs no acute hematologic abnormality, no significant metabolic derangement. Troponin not elevated. Urinalysis without evidence of infection. X-ray of the abdomen with evidence of moderate stool burden no evidence of infection no free air under the diaphragm. Advised patient to hydrate well, increase his intake of fruits and vegetables as well as fiber. EKG performed today at 1121 notable for sinus rhythm normal intervals and nonspecific T wave changes, not a cardiac alert 3p on reevaluation patient GCS 15, no focal neurodeficits, ambulating without difficulty, symptoms completely resolved. Will discharge home with close return precautions follow-up with primary care doctor as well as a neurologist. All questions answered. Patient data External records reviewed:: [facility] previous records Clinical information provided by:: patient and family Social determinants that could affect healthcare access:: mental health Patient has the following chronic illnesses:: See MDM How is presenting disease/condition affected by chronic disease/condition?: exacerbated by Evaluation data The following diagnostics were reviewed and interpreted by me:: lab results, radiology exam(s) and EKG tracing(s) Lab and/or radiology exams considered but not ordered:: None Interpretation Summary: See [facility] Medications / Prescriptions Medications or Prescriptions considered but not ordered:: None Medication administrations:: Medication Administration History Discontinued Medications Acetaminophen (Acetaminophen 325 Mg Tablet) 650 mg PO X1 ONE Stop: 08/13/25 12:01 Last Admin: 08/13/25 13:11 Dose: 650 mg Documented By: CHIRAG Ketorolac Tromethamine (Ketorolac Inj 30 Mg/Ml Vial) 15 mg IM X1 ONE Stop: 08/13/25 14:45 Metoclopramide HCl (Metoclopramide 5 Mg Tablet) 5 mg PO X1 ONE Stop: 08/13/25 12:01 Last Admin: 08/13/25 13:11 Dose: 5 mg Documented By: CHIRAG See above Consultations Consultation(s) initiated? (list below): No Diagnosis Differential diagnosis headache: other Most likely diagnosis given after review of the tests above:: Breakthrough headache Admission Indicated Admission indicated?: not indicated Admission Request Was there a request for admission?: No Disposition Plan Disposition Plan: Discharge Discharge Attestation Discharge Attestation: The patient and all family members were given an opportunity to ask questions and understood the discharge instructions. Discharge instructions specifically effects, indications for sooner follow up or return to the emergency department, and the expected course of current diagnosis. Patient condition: Stable Discharge Plan Plan Patient Disposition: HOME (Self Care) Prescriptions/Referrals Prescriptions/Med Rec: New metoclopramide HCl [Reglan] 5 mg tablet 5 mg PO QDAY PRN (Reason: nausea and vomiting) 5 Days Qty: 5 0RF No Action lacosamide [Vimpat] 50 mg tablet 50 mg PO BID Qty: 60 2RF metoprolol succinate 50 mg Tablet Extended Release 24 Hr 50 mg PO QDAY levetiracetam 500 mg tablet 1,500 mg PO BID Qty: 180 0RF Referrals: Mark Brand PA-C [Primary Care Provider] - In 1 week Problem List Clinical Impression: Migraine Patient/Caregiver Discharge Instructions Education Materials: ED Headache, Migraine, Classic Additional Instructions: Hidr?tese richard y esme un seguimiento con tadeo m?dico de atenci?n primaria dentro de 1 a 2 d?as. Regrese inmediatamente si tiene s?ntomas que empeoran o s?ntomas preocupantes. Por favor hacer jyoti con tadeo neurologo esta semana. Print Language: Turkmen Stand Alone Forms: Anne Award Info., Patient Portal Info Letter
[2025-08-13 14:05] LABS: Amphetamine/Methamp Scrn,U Negative (Negative); Barbiturate Screen,Urine Negative (Negative); Benzodiazepines Screen,Urine Negative (Negative); Benzoylecgonine Screen, Ur Negative (Negative); Fentanyl Screen,Urine Negative (Negative); Opiate Screen,Urine Negative (Negative); THC Screen,Urine Negative (Negative)
[2025-08-13 14:16] LABS: Bilirubin,Urine Negative (Negative); Blood,Urine Negative (Negative); Clarity,Urine Clear (Clear/Hazy); Color,Urine Yellow (Lt Yel-Yel); Culture Indicated,Urine Not Indicated; Glucose, Urine Negative (Negative); Ketones,Urine Negative (Negative); Leukocyte Esterase,Urine Negative (Negative); Nitrite,Urine Negative (Negative); PH,Urine 5.5 (5.0-7.0); Protein,Urine Negative (Neg - Trace); RBC,Urine < 1 /hpf (0-3); Specific Gravity,Urine 1.029 (1.001-1.035); Squamous Epithelial Cell,Urine 1 /hpf (0-5); Urobilinogen,Urine Negative mg/dL (0.0-1.0); WBC,Urine 1 /hpf (0-5)
== END 2025-08-13 15:09 | disposition home or self-care (01) ==
PROVIDERS: Nurse Practitioner Family; Emergency Provider Emergency Medicine; PCP Physician Assistant
DX: G43.109 Migraine with aura, not intractable, without status migrainosus (principal)
CPT/HCPCS: 36415; 70450; 74018; 80053; 80307; 81001; 82140; 83615; 83690; 83735; 83880; 84484; 85025; 85610; 85730; 93005; 99283; A9270

== ENCOUNTER 2025-08-13 17:38 | Emergency (ER) | payer MEDICAID, SELFPAY ==
[2025-08-13 18:23] VITALS: BP 153/91; PULSE 74; RESP 18; TEMP 36.6; O2SAT 97
--- NOTE | 2025-08-13 18:37 | PD.EDHA ---
ED Headache RME/HPI General Chief Complaint: Headache Stated Complaint: HEADACHE STILL D/C'D @1506 Time Seen by Provider: 08/13/25 18:07 Arrival date/time: 08/13/25 17:38 45-year-old male who was evaluated approximately 3 hours ago for headache returns with complaint of headache returning. Patient was offered a Toradol injection earlier while he was here but declined at that time as his headache has resolved. Patient states that headache has returned and he is here requesting the Toradol injection. He denies taking any medications at home. He denies any blurred vision ringing in ears shortness of breath chest pain or abdominal pain. Patient reports a little bit of nausea and photophobia. Limitations: no limitations Related Data Home Medications ?Medication ?Instructions ?Recorded ?Confirmed metoprolol succinate 50 mg 50 mg PO QDAY 06/14/24 06/14/24 tablet,extended release 24 hr Previous Rx's ?Medication ?Instructions ?Recorded levetiracetam 500 mg tablet 1,500 mg (3 x 500 mg) PO BID #180 06/16/24 tabs lacosamide 50 mg tablet (Vimpat) 50 mg PO BID #60 tabs 06/29/25 metoclopramide HCl 5 mg tablet 5 mg PO QDAY PRN nausea and 08/13/25 (Reglan) vomiting 5 days #5 tabs Allergies Allergy/AdvReac Type Severity Reaction Status Date / Time No Known Allergies Allergy Verified 08/13/25 10:39 Review of Systems Constitutional Constitutional: Denies chills and Denies fever(s) Eyes Eyes: Denies eye pain and Reports photophobia ENT Ears, Nose, Mouth, and Throat: Denies sinus pressure and Denies sore throat Cardiovascular Cardiovascular: Denies chest pain, Denies diaphoresis, Denies dyspnea and Denies syncope Respiratory Respiratory: Denies cough and Denies dyspnea Gastrointestinal Gastrointestinal: Reports nausea and Denies vomiting Musculoskeletal Musculoskeletal: Denies back pain and Denies deformity Integumentary/Breasts Skin/Breast: Denies unusual bruising and Denies wounds Neurologic Neurologic: Denies confusion, Denies lack of coordination and Denies syncope Psychiatric Psychiatric: Denies anxiety and Denies confusion Past Medical History Past Medical History NEUROLOGIC: Positive Neurological Disorders and Migraine CARDIAC: Positive Cardiac Disorders and Hypertension; Negative Congestive Heart Failure RESPIRATORY: Positive Sleep Apnea; Negative Chronic Obstructive Pulmonary Disease (COPD) GASTROINTESTINAL: Negative Gastrointestinal Disorders GENITOURINARY: Negative Genitourinary Disorders or Renal Disease MUSCULOSKELETAL: Negative Musculoskeletal Disorders ENDOCRINE: Negative Endocrine Disorders, Diabetes Mellitus Type 1 or Diabetes Mellitus Type 2 HEMATOLOGIC: Negative Blood Disorders PSYCHO/SOCIAL: Positive Anxiety OTHER HISTORY: Negative Cancer Social History SMOKING STATUS: Never smoker SUBSTANCE USE: does not use ED Exam General Limitations: Present no limitations General appearance: Present alert and in no apparent distress Head Head exam: Present atraumatic Eye Eye exam: Present normal appearance, PERRL and EOMI ENT ENT exam: Present normal exam, normal oropharynx and mucous membranes moist Neck Neck exam: Present normal inspection, full ROM and trachea midline Chest Chest inspection: Present normal inspection and symmetric chest wall rise Respiratory Respiratory exam: Present normal lung sounds bilaterally Cardiovascular Cardiovascular exam: Present regular rate, normal rhythm and normal heart sounds Abdominal Exam Abdominal exam: Present soft and normal bowel sounds Extremities Exam Extremities exam: Present normal inspection and full ROM Back Exam Back exam: Present normal inspection and full ROM Neurological Exam Neurological exam: Present alert, oriented X3 and CN II-XII intact Psychiatric Psychiatric exam: Present normal affect and normal mood Skin Skin exam: Present warm, dry, intact and normal color Course Quality Measures none Orders Category Date Time Status Ketorolac Inj [Toradol Inj] Med 08/13/25 18:33 Once 30 mg IM X1 ONE Prochlorperazine Inj [Compazine Inj] Med 08/13/25 18:33 Once 10 mg IM X1 ONE Vital Signs Vital signs: Vital Signs Temperature 97.8 F 08/13/25 18:23 Pulse Rate 74 08/13/25 18:23 Respiratory Rate 18 08/13/25 18:23 Blood Pressure 153/91 H 08/13/25 18:23 Pulse Oximetry (%) 97 08/13/25 18:23 Oxygen Delivery Method Room Air 08/13/25 18:23 Headache Patient data External records reviewed:: None Clinical information provided by:: patient Social determinants that could affect healthcare access:: none Patient has the following chronic illnesses:: none How is presenting disease/condition affected by chronic disease/condition?: no chronic disease Evaluation data The following diagnostics were reviewed and interpreted by me:: other (specify) (none) Lab and/or radiology exams considered but not ordered:: n/a Interpretation Summary: n.a Medications / Prescriptions Medications or Prescriptions considered but not ordered:: n/a Medication administrations:: Medication Administration History Ketorolac Tromethamine (Ketorolac Inj 30 Mg/Ml Vial) 30 mg IM X1 ONE Stop: 08/13/25 18:34 Prochlorperazine Edisylate (Prochlorperazine Inj 5 Mg/Ml Vial 2 Ml) 10 mg IM X1 ONE; Protocol Stop: 08/13/25 18:34 as above Consultations Consultation(s) initiated? (list below): No Diagnosis Differential diagnosis headache: migraine, tension headache and headache Most likely diagnosis given after review of the tests above:: headaches Admission Indicated Admission indicated?: not indicated Admission Request Was there a request for admission?: No Disposition Plan Disposition Plan: Discharge Discharge Attestation Discharge Attestation: The patient and all family members were given an opportunity to ask questions and understood the discharge instructions. Discharge instructions specifically effects, indications for sooner follow up or return to the emergency department, and the expected course of current diagnosis. Patient condition: Stable Discharge Plan Plan Patient Disposition: HOME (Self Care) Prescriptions/Referrals Prescriptions/Med Rec: No Action lacosamide [Vimpat] 50 mg tablet 50 mg PO BID Qty: 60 2RF metoclopramide HCl [Reglan] 5 mg tablet 5 mg PO QDAY PRN (Reason: nausea and vomiting) 5 Days Qty: 5 0RF metoprolol succinate 50 mg Tablet Extended Release 24 Hr 50 mg PO QDAY levetiracetam 500 mg tablet 1,500 mg PO BID Qty: 180 0RF Problem List Clinical Impression: Headache Patient/Caregiver Discharge Instructions Discharge Activity: activity as tolerated Education Materials: Self-Care for Headaches Additional Instructions: Be sure to hydrate well get plenty of rest use [id number] medications as directed and follow-up with your primary care provider in 24 to 48 hours. Return to the emergency department if symptoms worsen Print Language: French Stand Alone Forms: Anne Award Info., Patient Portal Info Letter
[2025-08-13] MEDS: KETOROLAC INJ 30 MG/ML VIAL IM (19:56)
[2025-08-13] MEDS: PROCHLORPERAZINE INJ 5 MG/ML VIAL 2 ML 10 MG IM (19:58)
== END 2025-08-13 21:01 | disposition home or self-care (01) ==
LOC: SERX 20:41
PROVIDERS: Emergency Provider Emergency Medicine; PCP Physician Assistant
DX: R51.9 Headache, unspecified (principal)
CPT/HCPCS: 96372; 99282; J0780; J1885

== ENCOUNTER 2025-08-17 03:15 | Emergency (ER) | payer MEDICAID, SELFPAY ==
[2025-08-17 03:16] VITALS: BMI 36.7
[2025-08-17 03:17] VITALS: BP 166/98; PULSE 70; RESP 18; TEMP 36.6; O2SAT 97
--- NOTE | 2025-08-17 03:50 | EDNOTE_ITS ---
ED Dizzyness RME/HPI General Chief Complaint: Nausea/Vomiting/Diarrhea Stated Complaint: DIZZINESS, NAUSEA Time Seen by Provider: 08/17/25 03:45 Arrival date/time: 08/17/25 03:15 45M with history of difficulty to control migraines and seizures presents to ED with several days of continued N/V. Patient was here 2 days ago with RAHMAN, as well, which is not present now. Patient had unremarkable CT back then. Patient takes Keprra, Lacosamine, Reglan, and Gabapentin (TID). Limitations: no limitations Related Data Home Medications ?Medication ?Instructions ?Recorded ?Confirmed metoprolol succinate 50 mg 50 mg PO QDAY 06/14/24 08/11/17 tablet,extended release 24 hr Previous Rx's ?Medication ?Instructions ?Recorded levetiracetam 500 mg tablet 1,500 mg (3 x 500 mg) PO B ID #[id number] 06/16/24 tabs lacosamide 50 mg tablet (Vimpat) 50 mg PO BID #60 tabs 06/29/25 metoclopramide HCl 5 mg tablet 5 mg PO QDAY PRN nausea and 08/13/25 (Reglan) vomiting 5 days #5 tabs Allergies Allergy/AdvReac Type Severity Reaction Status Date / Time No Known Allergies Allergy Verified 08/13/25 10:39 Review of Systems Review of Systems Systems Reviewed: All systems reviewed, normal except as documented ENT Ears, Nose, Mouth, and Throat: Reports as per HPI and Reports vertigo Gastrointestinal Gastrointestinal: Reports as per HPI, Reports nausea and Reports vomiting Neurologic Neurologic: Reports vertigo Past Medical History Past Medical History NEUROLOGIC: Positive Neurological Disorders and Migraine CARDIAC: Positive Cardiac Disorders and Hypertension; Negative Congestive Heart Failure RESPIRATORY: Positive Sleep Apnea; Negative Chronic Obstructive Pulmonary Disease (COPD) GASTROINTESTINAL: Negative Gastrointestinal Disorders GENITOURINARY: Negative Genitourinary Disorders or Renal Disease MUSCULOSKELETAL: Negative Musculoskeletal Disorders ENDOCRINE: Negative Endocrine Disorders, Diabetes Mellitus Type 1 or Diabetes Mellitus Type 2 HEMATOLOGIC: Negative Blood Disorders PSYCHO/SOCIAL: Positive Anxiety OTHER HISTORY: Negative Cancer Social History SMOKING STATUS: Never smoker SUBSTANCE USE: does not use ED Exam General Limitations: Present no limitations General appearance: Present alert and in no apparent distress Head Head exam: Present atraumatic Eye Eye exam: Present normal appearance, PERRL and EOMI ENT ENT exam: Present normal exam, normal oropharynx and mucous membranes moist Neck Neck exam: Present normal inspection, full ROM and trachea midline Chest Chest inspection: Present normal inspection and symmetric chest wall rise Neurological Exam Neurological exam: Present alert and oriented X3 Psychiatric Psychiatric exam: Present normal affect and normal mood Skin Skin exam: Present warm, dry, intact and normal color Course Quality Measures none Orders Category Date Time Status Dexamethasone Inj [Decadron Inj] Med 08/17/25 03:46 Discontinued 10 mg PO X1 ONE Meclizine HCl [Antivert] Med 08/17/25 03:46 Discontinued 25 mg PO X1 ONE Vital Signs Vital signs: Vital Signs Temperature 97.9 F 08/17/25 03:17 Pulse Rate 70 08/17/25 03:17 Respiratory Rate 18 08/17/25 03:17 Blood Pressure 166/98 H 08/17/25 03:17 Pulse Oximetry (%) 97 08/17/25 03:17 Oxygen Delivery Method Room Air 08/17/25 03:17 O2 at 97% on RA and WNLs Dizziness MDM Narrative MDM Narrative:: 45M with history of difficulty to control migraines and seizures presents to ED with several days of continued N/V. Patient was here 2 days ago with RAHMAN, as well, which is not present now. Patient had unremarkable CT back then. Patient takes Keprra, Lacosamine, Reglan, and Gabapentin (TID). Physical exam reveals normal pupil response and EOM. Gait normal. Speech normal. Patient is afebrile, calm, and alert. Dizziness likely from a combo of polypharmacy from so many sedating meds, as well as existing disease process. Meds and family counselor given. Patient data External records reviewed:: [facility] previous records Clinical information provided by:: patient Social determinants that could affect healthcare access:: none Patient has the following chronic illnesses:: migraines, seizures How is presenting disease/condition affected by chronic disease/condition?: exacerbated by Evaluation data The following diagnostics were reviewed and interpreted by me:: other (specify) (none) Lab and/or radiology exams considered but not ordered:: not ordered Interpretation Summary: n/a Medications / Prescriptions Medications or Prescriptions considered but not ordered:: ordered Medication administrations:: Medication Administration History Discontinued Medications Dexamethasone Sodium Phosphate (Dexamethasone Sod Phos Inj 10 Mg/Ml Vial) 10 mg PO X1 ONE Stop: 08/17/25 03:47 Meclizine HCl (Meclizine Hcl 25 Mg Tablet) 25 mg PO X1 ONE Stop: 08/17/25 03:47 above Consultations Consultation(s) initiated? (list below): No Diagnosis Dizziness Differential Diagnosis: adverse reaction to drug, benign paroxysmal positional vertigo, orthostatic hypotension, vertebral basilar insufficiency, cerebrovascular accident, acute vestibular neuronitis, transient cerebral ischemia and other (dizziness, polypharmacy) Most likely diagnosis given after review of the tests above:: dizziness, polypharmacy Admission Indicated Admission indicated?: not indicated Admission Request Was there a request for admission?: No Disposition Plan Disposition Plan: Discharge Discharge Attestation Discharge Attestation: The patient and all family members were given an opportunity to ask questions and understood the discharge instructions. Discharge instructions specifically effects, indications for sooner follow up or return to the emergency department, and the expected course of current diagnosis. Patient condition: Stable Discharge Plan Plan Patient Disposition: HOME (Self Care) Discharge Disposition comment: Stable Prescriptions/Referrals Prescriptions/Med Rec: No Action lacosamide [Vimpat] 50 mg tablet 50 mg PO BID Qty: 60 2RF metoclopramide HCl [Reglan] 5 mg tablet 5 mg PO QDAY PRN (Reason: nausea and vomiting) 5 Days Qty: 5 0RF metoprolol succinate 50 mg Tablet Extended Release 24 Hr 50 mg PO QDAY levetiracetam 500 mg tablet 1,500 mg PO BID Qty: 180 0RF Problem List Clinical Impression: At risk for polypharmacy, Dizziness Patient/Caregiver Discharge Instructions Education Materials: ED Dizziness, Uncertain Cause Additional Instructions: Please follow-up with PCP within 24-48 hours and return immediately if symptoms worsen. See PCP/neurologist to optimize meds. Can also get possible referral to ENT to exclude peripheral causes of dizziness. Print Language: Frisian Stand Alone Forms: Patient Portal Info Letter RUY/TODD Supervising Physician RUY/TODD Supervising Physician: Dr. Saldivar
[2025-08-17] MEDS: ONDANSETRON ODT 4 MG TABRAP PO (04:19)
[2025-08-17] MEDS: DEXAMETHASONE SOD PHOS INJ 10 MG/ML VIAL PO (04:20)
[2025-08-17] MEDS: MECLIZINE HCL 25 MG TABLET PO (04:20)
[2025-08-17 04:26] VITALS: BP 132/87; PULSE 60; RESP 17; TEMP 36.6; O2SAT 98
== END 2025-08-17 04:28 | disposition home or self-care (01) ==
LOC: SERX 04:10
PROVIDERS: Emergency Provider Emergency Medicine; PCP Physician Assistant
DX: R42 Dizziness and giddiness (principal)
CPT/HCPCS: 99281; J1100; Q0162; A9270